=== PATIENT | male | born 1955 | race Asian ===

== ENCOUNTER 2016-06-01 06:19 | Inpatient (IN) | payer MEDICARE ==
[~2016-06-01] VITALS: Ht 175.3 cm; Wt 132.6 kg
[~2016-06-01 06:19] MED LIST: ALBU8HFA IH; AUD NEB; BUDE90AE PUFF; INSNOV SQ; INSU100V12 SQ; IPRAHFA IH; METO50 PO; SENN-30 PO; THIOT10 PO
[2016-06-01] MEDS ORDERED: ALBUTEROL SULFATE 2.5 MG/0.5 ML NEB SOLUTION NEB ONE (06:30)
[2016-06-01] MEDS ORDERED: MethylPREDNISolone SOD SUCC 125 MG/2 ML VIAL IVP ONE (06:30)
[2016-06-01 06:31] LABS: GLUCOSE,POINT OF CARE 328 MG/DL (70-110)
[2016-06-01] MEDS ORDERED: THIOT10 PO (06:37)
[2016-06-01] MEDS ORDERED: METO50 PO (06:37)
[2016-06-01] MEDS ORDERED: AMLO-512 PO (06:37)
[2016-06-01] MEDS ORDERED: INSU100V12 SQ (06:37)
[2016-06-01] MEDS ORDERED: PRED5 PO (06:37)
[2016-06-01] MEDS ORDERED: XUD IH (06:37)
[2016-06-01] MEDS ORDERED: INSNOV SQ (06:37)
[2016-06-01] MEDS ORDERED: ALBU2.5V2 NEB (06:37)
[2016-06-01] MEDS ORDERED: 0.9% SODIUM CHLORIDE 5 ML NEB SOLUTION NEB ONE (06:44)
[2016-06-01 06:48] LABS: BASOPHILS % (AUTO) 0.3 % (0.0-2.0); EOSINOPHILS % (AUTO) 0.8 % (1.0-6.0); HEMATOCRIT 38.9 % (41-53); HEMOGLOBIN 12.3 g/dL (13.5-17.5); LYMPHOCYTES # (AUTO) 1.5 K/uL (1.0-4.8); LYMPHOCYTES % (AUTO) 16.3 % (22.0-44.0); MEAN CORPUSCULAR HEMOGLOBIN 28.5 pg (26.0-34.0); MEAN CORPUSCULAR HGB CONC 31.7 G/dL (31.0-37.0); MEAN CORPUSCULAR VOLUME 90 fL (80-100); MONOCYTES # (AUTO) 0.7 K/uL (0.1-1.0); MONOCYTES % (AUTO) 7.3 % (2.0-9.0); NEUTROPHILS % (AUTO) 75.3 % (40.0-70.0); PLATELET COUNT (AUTO) 209 K/uL (150-450); RED BLOOD CELL COUNT(AUTO) 4.33 MIL/uL (4.50-5.90); RED CELL DISTRIBUTION WIDTH 14.1 % (11.5-14.5); WHITE BLOOD COUNT (AUTO) 9.3 K/uL (4.5-11.0)
[2016-06-01 06:54] LABS: ABG A-A DIFF O2 157.8 mmHg (10-20.0); ABG BASE EXCESS 7.6 mmol/L (-2.0-3.0); ABG HCO3 29.2 mmol/L (22.0-26.0); ABG OXYHEMOGLOBIN 92.7 % (94.0-100.0); ABG PH 7.302 (7.35-7.450); TEMPERATURE, FAHRENHEIT, BG 98.6 FAHREN (96.0-98.6)
[2016-06-01 06:55] LABS: ABG PCO2 70 mmHg (35-45); ALLEN TEST, BLOOD GAS Positive
[2016-06-01 06:59] LABS: ANION GAP 4 mmol/L (8-16); CALCIUM, TOTAL 8.2 mg/dL (8.8-10.5); CARBON DIOXIDE 36 mmol/L (22-29); CHLORIDE 97 mmol/L (98-107); CREATININE 1.84 mg/dL (0.60-1.30); GLOMERULAR FILTR. RATE CALC 38 mL/min (>60); POTASSIUM 4.2 mmol/L (3.5-5.1); SODIUM SERUM 137 mmol/L (136-145); UREA NITROGEN, BLOOD 32 mg/dL (7-18)
[2016-06-01 07:00] LABS: INR 0.9 (0.9-1.1); PROTHROMBIN TIME 9.9 SEC (9.4-11.6)
[2016-06-01 07:04] LABS: ALANINE AMINOTRANSFERASE 28 U/L (12-78); ALBUMIN 2.8 g/dL (3.4-5.0); ASPARTATE AMINOTRANSFERASE 9 U/L (15-37); BILIRUBIN,TOTAL 0.1 mg/dL (0.1-1.0); CREATINE KINASE, TOTAL 29 U/L (39-308)
[2016-06-01 07:17] LABS: B-TYPE NATRIURETIC PEPTIDE 59 pg/mL (0-100)
[2016-06-01] MEDS ORDERED: FUROSEMIDE 40 MG/4 ML VIAL IVP ONE (07:30)
[2016-06-01] MEDS ORDERED: INSULIN ASPART 100 UNITS/ML SQ PRN (10:00)
[2016-06-01] MEDS: ALBUTEROL SULFATE 2.5 MG/0.5 ML NEB SOLUTION NEB SCH ×2 (10:00→16:14)
[2016-06-01] MEDS ORDERED: OxyCODONE HCL/ACETAMINOPHEN 5-325 MG TABLET PO PRN (10:00)
[2016-06-01] MEDS ORDERED: MAGNESIUM HYDROXIDE SUSPENSION 30 ML UDCUP PO PRN (10:00)
[2016-06-01] MEDS ORDERED: BISACODYL 10 MG RECTAL RECTAL SUPPOSITORY PR PRN (10:00)
[2016-06-01] MEDS ORDERED: ONDANSETRON HCL 4 MG/2 ML VIAL IVP PRN (10:00)
[2016-06-01] MEDS: IPRATROPIUM BROMIDE 0.5 MG/2.5 ML NEB SOLUTION NEB SCH ×2 (10:00→16:14)
[2016-06-01] MEDS ORDERED: DEXTROSE 50%-WATER 25 GM/50 ML SYRINGE IVP PRN (10:00)
[2016-06-01] MEDS ORDERED: ZOLPIDEM TARTRATE 10 MG TABLET PO PRN (10:00)
[2016-06-01] MEDS ORDERED: ACETAMINOPHEN 325 MG TABLET PO PRN (10:00)
[2016-06-01 11:21] LABS: APPEARANCE,URINE CLEAR (CLEAR); GLUCOSE, URINE (UA) 500 mg/dL (NEGATIVE); KETONES,URINE NEGATIVE (NEGATIVE); LEUKOCYTE ESTERASE ,URINE NEGATIVE (NEGATIVE); OCCULT BLOOD,URINE NEGATIVE (NEGATIVE); PROTEIN,URINE TRACE (NEGATIVE)
[2016-06-01 11:22] LABS: ADD UA MICROSCOPIC YES
[2016-06-01 11:24] LABS: RBC,URINE None Seen /HPF (0-2); SQUAMOUS EPITHELIAL CELL,UR Rare /LPF (None Seen); WBC,URINE None Seen /HPF (0-5)
[2016-06-01 12:13] LABS: ABG A-A DIFF O2 70.3 mmHg (10-20.0); ABG BASE EXCESS 3.8 mmol/L (-2.0-3.0); ABG HCO3 26.4 mmol/L (22.0-26.0); ABG OXYHEMOGLOBIN 92.6 % (94.0-100.0); ABG PCO2 62 mmHg (35-45); ABG PH 7.308 (7.35-7.450); TEMPERATURE, FAHRENHEIT, BG 98.6 FAHREN (96.0-98.6)
[2016-06-01 12:14] LABS: ALLEN TEST, BLOOD GAS Positive
[2016-06-01 12:15] LABS: IPAP, BG 18 cm H2O
[2016-06-01 14:36] LABS: GLUCOSE,POINT OF CARE 487 MG/DL (70-110)
[2016-06-01] MEDS ORDERED: INSULIN GLARGINE,HUM.REC.ANLOG 100 UNITS/ML SQ ONE (15:45)
[2016-06-01 17:11] LABS: GLUCOSE COMMENT 1 Repeated; GLUCOSE,POINT OF CARE 503 MG/DL (70-110)
[2016-06-01] MEDS: HEPARIN SODIUM,PORCINE 5,000 UNITS/ML VIAL SQ SCH ×2 (18:03→23:33)
[2016-06-01 18:06] LABS: GLUCOSE COMMENT 1 Repeated; GLUCOSE,POINT OF CARE 524 MG/DL (70-110)
[2016-06-01 18:21] VITALS: BP 160/75
[2016-06-01 19:07] VITALS: BP 125/85
[2016-06-01 19:35] LABS: GLUCOSE COMMENT 1 Repeated; GLUCOSE,POINT OF CARE 432 MG/DL (70-110)
[2016-06-01 20:55] VITALS: BP 151/90
[2016-06-01] MEDS: INSULIN ASPART 100 UNITS/ML SQ PRN (21:20)
[2016-06-01] MEDS: THIOTHIXENE 10 MG CAPSULE PO SCH (22:47)
[2016-06-01] MEDS: METOPROLOL TARTRATE 50 MG TABLET PO SCH (22:48)
[2016-06-02 00:06] VITALS: BP 126/82
[2016-06-02] MEDS: ALBUTEROL SULFATE 2.5 MG/0.5 ML NEB SOLUTION NEB SCH ×4 (02:42→19:19)
[2016-06-02] MEDS: IPRATROPIUM BROMIDE 0.5 MG/2.5 ML NEB SOLUTION NEB SCH ×4 (02:43→19:19)
[2016-06-02 04:04] VITALS: BP 140/79
[2016-06-02] MEDS: INSULIN ASPART 100 UNITS/ML SQ PRN ×4 (05:45→21:15)
[2016-06-02 07:01] LABS: GLUCOSE COMMENT 1 Received Meds; GLUCOSE,POINT OF CARE 364 MG/DL (70-110)
[2016-06-02 07:02] LABS: GLUCOSE COMMENT 1 Received Meds; GLUCOSE,POINT OF CARE 198 MG/DL (70-110)
[2016-06-02 07:32] VITALS: BP 133/62
[2016-06-02 07:36] LABS: BASOPHILS % (AUTO) 0.2 % (0.0-2.0); EOSINOPHILS % (AUTO) 0 % (1.0-6.0); HEMATOCRIT 37.3 % (41-53); LYMPHOCYTES # (AUTO) 0.9 K/uL (1.0-4.8); LYMPHOCYTES % (AUTO) 8.5 % (22.0-44.0); MEAN CORPUSCULAR HGB CONC 32.1 G/dL (31.0-37.0); MEAN CORPUSCULAR VOLUME 90 fL (80-100); MONOCYTES # (AUTO) 0.5 K/uL (0.1-1.0); MONOCYTES % (AUTO) 4.7 % (2.0-9.0); NEUTROPHILS # (AUTO) 9.3 K/uL (1.8-7.7); PLATELET COUNT (AUTO) 208 K/uL (150-450); RED BLOOD CELL COUNT(AUTO) 4.13 MIL/uL (4.50-5.90); RED CELL DISTRIBUTION WIDTH 13.7 % (11.5-14.5); WHITE BLOOD COUNT (AUTO) 10.8 K/uL (4.5-11.0)
[2016-06-02 07:37] LABS: NEUTROPHILS % (AUTO) 86.6 % (40.0-70.0)
[2016-06-02 07:52] LABS: ALBUMIN 2.7 g/dL (3.4-5.0); BILIRUBIN,TOTAL 0.4 mg/dL (0.1-1.0); CALCIUM, TOTAL 8.7 mg/dL (8.8-10.5); CREATININE 1.58 mg/dL (0.60-1.30); POTASSIUM 4.2 mmol/L (3.5-5.1); TOTAL PROTEIN, SERUM 6.7 g/dL (6.4-8.2)
[2016-06-02] MEDS: HEPARIN SODIUM,PORCINE 5,000 UNITS/ML VIAL SQ SCH ×2 (08:25→15:45)
[2016-06-02] MEDS: METOPROLOL TARTRATE 50 MG TABLET PO SCH ×2 (08:25→20:52)
[2016-06-02] MEDS: PANTOPRAZOLE SODIUM 40 MG DR TABLET PO SCH (08:25)
[2016-06-02] MEDS: AmLODIPine BESYLATE 10 MG TABLET PO SCH (08:25)
[2016-06-02 11:45] VITALS: BP 147/71
[2016-06-02 15:19] VITALS: BP 116/60
[2016-06-02 17:36] LABS: GLUCOSE,POINT OF CARE 220 MG/DL (70-110)
[2016-06-02 20:15] VITALS: BP 123/79
[2016-06-02] MEDS: THIOTHIXENE 10 MG CAPSULE PO SCH (20:52)
[2016-06-03] VITALS (7 sets, daily range): BP systolic 126–159; BP diastolic 69–101
[2016-06-03] MEDS: HEPARIN SODIUM,PORCINE 5,000 UNITS/ML VIAL SQ SCH ×3 (00:03→16:56)
[2016-06-03] MEDS: IPRATROPIUM BROMIDE 0.5 MG/2.5 ML NEB SOLUTION NEB SCH ×4 (02:06→18:51)
[2016-06-03] MEDS: ALBUTEROL SULFATE 2.5 MG/0.5 ML NEB SOLUTION NEB SCH ×4 (02:06→18:51)
[2016-06-03] MEDS: INSULIN ASPART 100 UNITS/ML SQ PRN ×4 (06:13→21:29)
[2016-06-03 06:27] LABS: BASOPHILS # (AUTO) 0.03 K/uL (0.00-0.20); BASOPHILS % (AUTO) 0.4 % (0.0-2.0); EOSINOPHILS # (AUTO) 0.04 K/uL (0.00-0.70); EOSINOPHILS % (AUTO) 0.54 % (1.0-6.0); HEMATOCRIT 35.5 % (41-53); HEMOGLOBIN 11.7 g/dL (13.5-17.5); LYMPHOCYTES # (AUTO) 1.5 K/uL (1.0-4.8); LYMPHOCYTES % (AUTO) 18.9 % (22.0-44.0); MEAN CORPUSCULAR HEMOGLOBIN 29.3 pg (26.0-34.0); MEAN CORPUSCULAR HGB CONC 32.9 G/dL (31.0-37.0); MEAN CORPUSCULAR VOLUME 89 fL (80-100); MONOCYTES # (AUTO) 0.5 K/uL (0.1-1.0); MONOCYTES % (AUTO) 6.1 % (2.0-9.0); NEUTROPHILS % (AUTO) 74.1 % (40.0-70.0); PLATELET COUNT (AUTO) 215 K/uL (150-450); RED BLOOD CELL COUNT(AUTO) 3.98 MIL/uL (4.50-5.90); RED CELL DISTRIBUTION WIDTH 14.4 % (11.5-14.5); WHITE BLOOD COUNT (AUTO) 8.2 K/uL (4.5-11.0)
[2016-06-03 06:59] LABS: ALBUMIN 2.6 g/dL (3.4-5.0); BILIRUBIN,TOTAL 0.3 mg/dL (0.1-1.0); CALCIUM, TOTAL 8.5 mg/dL (8.8-10.5); CREATININE 1.89 mg/dL (0.60-1.30); POTASSIUM 4.1 mmol/L (3.5-5.1); TOTAL PROTEIN, SERUM 6.4 g/dL (6.4-8.2)
[2016-06-03] MEDS: METOPROLOL TARTRATE 50 MG TABLET PO SCH ×2 (08:19→21:28)
[2016-06-03] MEDS: AmLODIPine BESYLATE 10 MG TABLET PO SCH (08:19)
[2016-06-03] MEDS: PANTOPRAZOLE SODIUM 40 MG DR TABLET PO SCH (08:20)
[2016-06-03 11:24] LABS: TEMPERATURE, FAHRENHEIT, BG 98.3 FAHREN (96.0-98.6)
[2016-06-03 11:27] LABS: ABG A-A DIFF O2 80.4 mmHg (10-20.0); ABG BASE EXCESS 12.5 mmol/L (-2.0-3.0); ABG OXYHEMOGLOBIN 91.1 % (94.0-100.0); ABG PCO2 61 mmHg (35-45); ABG PH 7.401 (7.35-7.450); ALLEN TEST, BLOOD GAS Positive
[2016-06-03 11:28] LABS: IPAP, BG 18 cm H2O
[2016-06-03 12:01] LABS: GLUCOSE COMMENT 1 Received Meds; GLUCOSE,POINT OF CARE 210 MG/DL (70-110)
[2016-06-03] MEDS ORDERED: 0.9% SODIUM CHLORIDE 5 ML NEB SOLUTION NEB ONE (18:49)
[2016-06-03 20:06] LABS: GLUCOSE,POINT OF CARE 225 MG/DL (70-110)
[2016-06-03 20:07] LABS: GLUCOSE,POINT OF CARE 282 MG/DL (70-110)
[2016-06-03] MEDS: THIOTHIXENE 10 MG CAPSULE PO SCH (21:28)
[2016-06-04] MEDS ORDERED: 0.9% SODIUM CHLORIDE 5 ML NEB SOLUTION NEB ONE (00:03)
[2016-06-04] MEDS: ALBUTEROL SULFATE 2.5 MG/0.5 ML NEB SOLUTION NEB PRN (00:09)
[2016-06-04] MEDS: HEPARIN SODIUM,PORCINE 5,000 UNITS/ML VIAL SQ SCH ×4 (01:26→23:47)
[2016-06-04] MEDS: ALBUTEROL SULFATE 2.5 MG/0.5 ML NEB SOLUTION NEB SCH ×4 (02:32→19:50)
[2016-06-04] MEDS: IPRATROPIUM BROMIDE 0.5 MG/2.5 ML NEB SOLUTION NEB SCH ×4 (02:33→19:50)
[2016-06-04 04:46] VITALS: BP 134/85
[2016-06-04 05:51] LABS: GLUCOSE COMMENT 1 Received Meds; GLUCOSE,POINT OF CARE 345 MG/DL (70-110)
[2016-06-04] MEDS: INSULIN ASPART 100 UNITS/ML SQ PRN ×4 (06:34→22:16)
[2016-06-04 06:51] LABS: GLUCOSE COMMENT 1 Received Meds; GLUCOSE,POINT OF CARE 211 MG/DL (70-110)
[2016-06-04 07:26] LABS: BASOPHILS % (AUTO) 0.3 % (0.0-2.0); EOSINOPHILS % (AUTO) 0.9 % (1.0-6.0); HEMATOCRIT 36.2 % (41-53); HEMOGLOBIN 11.6 g/dL (13.5-17.5); LYMPHOCYTES # (AUTO) 1.1 K/uL (1.0-4.8); LYMPHOCYTES % (AUTO) 16.5 % (22.0-44.0); MEAN CORPUSCULAR HEMOGLOBIN 28.5 pg (26.0-34.0); MEAN CORPUSCULAR VOLUME 89 fL (80-100); MONOCYTES # (AUTO) 0.5 K/uL (0.1-1.0); MONOCYTES % (AUTO) 6.7 % (2.0-9.0); NEUTROPHILS # (AUTO) 5.2 K/uL (1.8-7.7); NEUTROPHILS % (AUTO) 75.6 % (40.0-70.0); PLATELET COUNT (AUTO) 186 K/uL (150-450); RED BLOOD CELL COUNT(AUTO) 4.07 MIL/uL (4.50-5.90); RED CELL DISTRIBUTION WIDTH 14.3 % (11.5-14.5); WHITE BLOOD COUNT (AUTO) 6.9 K/uL (4.5-11.0)
[2016-06-04 07:45] LABS: ALBUMIN 2.7 g/dL (3.4-5.0); BILIRUBIN,TOTAL 0.3 mg/dL (0.1-1.0); CREATININE 1.8 mg/dL (0.60-1.30); TOTAL PROTEIN, SERUM 6.6 g/dL (6.4-8.2)
[2016-06-04 08:47] LABS: POTASSIUM 3.8 mmol/L (3.5-5.1)
[2016-06-04 08:48] LABS: CALCIUM, TOTAL 8.6 mg/dL (8.8-10.5)
[2016-06-04] MEDS: METOPROLOL TARTRATE 50 MG TABLET PO SCH ×2 (09:11→22:07)
[2016-06-04] MEDS: AmLODIPine BESYLATE 10 MG TABLET PO SCH (09:11)
[2016-06-04] MEDS: PANTOPRAZOLE SODIUM 40 MG DR TABLET PO SCH (09:11)
[2016-06-04 09:41] LABS: GLUCOSE COMMENT 1 Received Meds; GLUCOSE,POINT OF CARE 350 MG/DL (70-110)
[2016-06-04 09:41] LABS: GLUCOSE COMMENT 1 Received Meds; GLUCOSE,POINT OF CARE 235 MG/DL (70-110)
[2016-06-04 10:17] VITALS: BP 123/61
[2016-06-04 11:00] LABS: GLUCOSE COMMENT 1 Received Meds; GLUCOSE,POINT OF CARE 163 MG/DL (70-110)
[2016-06-04 11:57] VITALS: BP 135/79
[2016-06-04 15:41] VITALS: BP 134/82
[2016-06-04 20:15] VITALS: BP 123/75
[2016-06-04] MEDS: THIOTHIXENE 10 MG CAPSULE PO SCH (22:07)
[2016-06-04 22:41] LABS: GLUCOSE COMMENT 1 Received Meds; GLUCOSE,POINT OF CARE 323 MG/DL (70-110)
[2016-06-05 00:24] VITALS: BP 105/57
[2016-06-05] MEDS: ALBUTEROL SULFATE 2.5 MG/0.5 ML NEB SOLUTION NEB PRN ×2 (00:35→17:19)
[2016-06-05] MEDS: ALBUTEROL SULFATE 2.5 MG/0.5 ML NEB SOLUTION NEB SCH ×4 (02:00→20:19)
[2016-06-05] MEDS: IPRATROPIUM BROMIDE 0.5 MG/2.5 ML NEB SOLUTION NEB SCH ×4 (02:00→20:19)
[2016-06-05 04:30] VITALS: BP 134/85
[2016-06-05] MEDS: INSULIN ASPART 100 UNITS/ML SQ PRN ×4 (06:32→21:09)
[2016-06-05 07:12] VITALS: BP 147/79
[2016-06-05 07:21] LABS: ALBUMIN 2.7 g/dL (3.4-5.0); BILIRUBIN,TOTAL 0.5 mg/dL (0.1-1.0); CALCIUM, TOTAL 8.8 mg/dL (8.8-10.5); CREATININE 1.69 mg/dL (0.60-1.30); POTASSIUM 4.1 mmol/L (3.5-5.1); TOTAL PROTEIN, SERUM 7.1 g/dL (6.4-8.2)
[2016-06-05 07:21] LABS: GLUCOSE COMMENT 1 Received Meds; GLUCOSE,POINT OF CARE 190 MG/DL (70-110)
[2016-06-05 07:21] LABS: GLUCOSE COMMENT 1 Received Meds; GLUCOSE,POINT OF CARE 237 MG/DL (70-110)
[2016-06-05 08:24] LABS: BASOPHILS % (AUTO) 0.4 % (0.0-2.0); EOSINOPHILS % (AUTO) 1.4 % (1.0-6.0); HEMATOCRIT 33.3 % (41-53); HEMOGLOBIN 10.8 g/dL (13.5-17.5); LYMPHOCYTES % (AUTO) 15.4 % (22.0-44.0); MEAN CORPUSCULAR HEMOGLOBIN 28.8 pg (26.0-34.0); MEAN CORPUSCULAR HGB CONC 32.3 G/dL (31.0-37.0); MEAN CORPUSCULAR VOLUME 89 fL (80-100); MONOCYTES # (AUTO) 0.4 K/uL (0.1-1.0); MONOCYTES % (AUTO) 6.4 % (2.0-9.0); NEUTROPHILS # (AUTO) 4.8 K/uL (1.8-7.7); NEUTROPHILS % (AUTO) 76.4 % (40.0-70.0); PLATELET COUNT (AUTO) 141 K/uL (150-450); RED BLOOD CELL COUNT(AUTO) 3.73 MIL/uL (4.50-5.90); RED CELL DISTRIBUTION WIDTH 14.1 % (11.5-14.5); WHITE BLOOD COUNT (AUTO) 6.3 K/uL (4.5-11.0)
[2016-06-05] MEDS: PANTOPRAZOLE SODIUM 40 MG DR TABLET PO SCH (08:29)
[2016-06-05] MEDS: METOPROLOL TARTRATE 50 MG TABLET PO SCH ×2 (08:30→21:07)
[2016-06-05] MEDS: AmLODIPine BESYLATE 10 MG TABLET PO SCH (08:30)
[2016-06-05] MEDS: HEPARIN SODIUM,PORCINE 5,000 UNITS/ML VIAL SQ SCH ×2 (08:30→16:44)
[2016-06-05 10:57] VITALS: BP 158/90
[2016-06-05 12:51] LABS: GLUCOSE COMMENT 1 Received Meds; GLUCOSE,POINT OF CARE 295 MG/DL (70-110)
[2016-06-05] MEDS ORDERED: 0.9% SODIUM CHLORIDE 5 ML NEB SOLUTION NEB ONE ×2 (14:19→17:14)
[2016-06-05 15:51] VITALS: BP 154/101
[2016-06-05 18:51] LABS: GLUCOSE COMMENT 1 Received Meds; GLUCOSE,POINT OF CARE 308 MG/DL (70-110)
[2016-06-05 19:59] VITALS: BP 144/90
[2016-06-05] MEDS: THIOTHIXENE 10 MG CAPSULE PO SCH (21:06)
[2016-06-06 07:12] LABS: GLUCOSE,POINT OF CARE 310 MG/DL (70-110)
== END 2016-06-05 22:20 | disposition short-term general hospital (02) | DRG 189 ==
LOC: EMS 06:21 → AHU 12:48 → 5N 21:25 → 5S 06-02 21:00
PROVIDERS: ADMIT Hospitalist; ATTEND Hospitalist
PROC: 5A09357 Assistance with Respiratory Ventilation, Less than 24 Consecutive Hours, Continuous Positive Airway Pressure (ICD-10-PCS; principal; 2016-06-03)
DX: J96.01 Acute respiratory failure with hypoxia (principal); J44.1 Chronic obstructive pulmonary disease with (acute) exacerbation; I50.32 Chronic diastolic (congestive) heart failure; I13.0 Hypertensive heart and chronic kidney disease with heart failure and stage 1 through stage 4 chronic kidney disease, or unspecified chronic kidney disease; Z68.41 Body mass index [BMI] 40.0-44.9, adult; G47.30 Sleep apnea, unspecified; E66.01 Morbid (severe) obesity due to excess calories; N18.9 Chronic kidney disease, unspecified; L40.9 Psoriasis, unspecified; J45.909 Unspecified asthma, uncomplicated; G47.33 Obstructive sleep apnea (adult) (pediatric); F25.9 Schizoaffective disorder, unspecified; E78.5 Hyperlipidemia, unspecified; E11.22 Type 2 diabetes mellitus with diabetic chronic kidney disease; K21.9 Gastro-esophageal reflux disease without esophagitis; Z79.899 Other long term (current) drug therapy; Z79.51 Long term (current) use of inhaled steroids; Z79.84 Long term (current) use of oral hypoglycemic drugs; Z87.01 Personal history of pneumonia (recurrent); Z87.891 Personal history of nicotine dependence; Z99.81 Dependence on supplemental oxygen
CPT/HCPCS: 82805; 82962; 87081; 93005; 94640; 94660; 96374; 96375; 99285; J1644; J1815; J1940; J2930